=== PATIENT | female | born 1985 | race Caucasian/White ===

== ENCOUNTER 2019-07-20 08:30 | Inpatient (IN) ==
[2019-07-20] MEDS ORDERED: SODIUM CHLORIDE 0.9% 2,000 ML IV STA (08:56)
[2019-07-20 09:49] LABS: Basophils # 0.1 10*3/uL (0.0-0.2); Basophils % 0.4 % (0.0-0.8); Hematocrit 41.4 VOL% (35.7-47.0); Hemoglobin 14.2 GM/DL (12.0-16.0); Immature Granulocytes % 1.6 %; Immature Granulocytes Absolute 0.22 #; Lymphocytes # 0.5 10*3/uL (1.4-4.0); Lymphocytes % 3.7 % (21.3-54.2); Mean Corpuscular HGB Conc 34.3 GM/DL (32-36); Mean Corpuscular Volume 88.7 FL (87-102); Mean Platelet Volume 13.5 FL (9.6-12.0); Monocytes % 2.8 % (1.7-12.7); Neutrophils % 91.5 % (38.7-73.9); Red Blood Count 4.67 MC/CUMM (3.8-5.5); Red Cell Distribution Width 12.7 % (9.3-17.3); White Blood Count 13.7 T/CUMM (4-12)
[2019-07-20 09:53] LABS: Platelet Count 66 T/CUMM (130-400)
[2019-07-20 09:56] LABS: INR 1.3; PT Patient Result 13.9 SECS (9.8-11.9)
[2019-07-20 10:05] LABS: ABG Base Excess -2.8 MMOL/L (-2.5-2.5); ABG HCO3 17.1 MMOL/L (20-26); ABG Oxygen Saturation 97.4 % (95-100); ABG PH 7.547 (7.35-7.45); ABG PO2 94.3 MM HG (80-95); ABG TCO2 17.7 MMOL/L (23-27)
[2019-07-20 10:06] LABS: ABG PCO2 20.1 MM HG (35-48)
[2019-07-20 10:10] LABS: Band Neutrophils 5 % (0-10); Lymphocytes 7 % (20-55); Platelet Estimate Decreased; Segmented Neutrophils 85 % (50-85); Total Cells Counted 100
[2019-07-20 10:13] LABS: Alanine Aminotransferase 84 U/L (13-56); Albumin 2.3 G/DL (3.4-5.0); Alkaline Phosphatase 152 U/L (45-117); Aspartate Amino Transferase 190 U/L (0-37); Blood Urea Nitrogen 60 MG/DL (7-18); Estimated Glom Filtration Rate 26 ML/MIN; Glucose 129 MG/DL (74-106); Osmolality,Calculated 275.1 MOS/KG (273-304); Total Protein 7.1 G/DL (6.4-8.3)
[2019-07-20 10:36] LABS: Amorphous Crystals,Urine Few /HPF (Few); Apearance,Urine CLOUDY (Clear); Bilirubin,Urine Negative (Negative); Blood, Urine Large mg/dL (Negative); Glucose,Urine (UA) Negative (Negative); Ketones,Urine Negative (Negative); Mucus,Urine Occasional /LPF (Occasional); Nitrite,Urine Negative (Negative); Protein,Urine 100 MG/DL; RBC,Urine 13 /HPF (0-4); Red Blood Cell Casts,Urine 15 /LPF (<1); Squamous Epithelial Cell,Urine Occasional /HPF (0-10); Urine Color Amber (Yellow); Urine Specific Gravity 1.017 (1.001-1.035); Urine Urobilinogen < 2.0 EU/DL (0.2-1.0); WBC,Urine 17 /HPF (0-6)
[2019-07-20 10:39] LABS: Barbiturates Screen,Urine Negative (Negative); Benzodiazepines Screen,Urine Negative (Negative); Cannabinoid Screen,Urine Negative (Negative); Opiate Screen,Urine Negative (Negative); Phencyclidine Screen,Urine Negative (Negative)
[2019-07-20] MEDS ORDERED: cefTRIAXone 1,000 MG in SODIUM CHLORIDE 0.9% 100 ML IV STA (10:55)
[2019-07-20 11:53] LABS: Hepatitis B Core IgM Quant 0.14 Index; Hepatitis B Surface Ag Quant 0.17 Index; Hepatitis B Surface Ag Result Negative (Negative); Hepatitis C Virus Ab Quant 2.01 Index
[2019-07-20] MEDS ORDERED: DEXTROSE 10% 250 ML BAG IV PRN (14:20)
[2019-07-20] MEDS ORDERED: GLUCAGON 1 MG VIAL IM PRN (14:20)
[2019-07-20] MEDS ORDERED: ONDANSETRON 4 MG/2 ML VIAL IV PRN (14:20)
[2019-07-20] MEDS ORDERED: SODIUM CHLORIDE 0.9% 1,000 ML IV SCH (15:00)
[2019-07-20] MEDS ORDERED: SODIUM CHLORIDE 0.9% 1,000 ML IV ONE (15:04)
[2019-07-20] MEDS: HYDROCORTISONE 100 MG VIAL IV SCH ×2 (15:15→20:40)
[2019-07-20] MEDS: LEVOTHYROXINE 100 MCG VIAL IV SCH (15:18)
[2019-07-20] MEDS: DIAZEPAM 10 MG/2 ML SYRINGE IV SCH ×2 (15:22→20:35)
[2019-07-20] MEDS: POTASSIUM CHLORIDE 20 MEQ TABLET PO SCH ×5 (15:25→20:35)
[2019-07-20] MEDS: ENOXAPARIN 30 MG/0.3 ML SYRINGE SUBCUT SCH (15:26)
[2019-07-20] MEDS: PANTOPRAZOLE 40 MG TABLET PO SCH (15:26)
[2019-07-20] MEDS: ACETAMINOPHEN 325 MG TABLET PO PRN (15:27)
[2019-07-20 16:24] LABS: Calcium 6.9 MG/DL (8.5-10.1); Osmolality,Calculated 280.5 MOS/KG (273-304)
[2019-07-20] MEDS: INSULIN LISPRO 100 UNIT/ML SUBCUT SCH ×2 (16:52→20:19)
[2019-07-20] MEDS ORDERED: POTASSIUM CHLORIDE RIDER 20 MEQ in PREMIX 1 EACH IV ONE (17:18)
[2019-07-20] MEDS ORDERED: CALCIUM GLUCONATE 2,000 MG in SODIUM CHLORIDE 0.9% 100 ML IV ONE (17:23)
[2019-07-20] MEDS ORDERED: cefTRIAXone 2,000 MG in SYRINGE 1 EACH IV SCH (17:30)
[2019-07-20] MEDS: SODIUM BICARB INJ 100 MEQ in DEXTROSE 5% 1,000 ML IV SCH (18:14)
[2019-07-20 18:39] LABS: Calcium 7.1 MG/DL (8.5-10.1); Osmolality,Calculated 278.5 MOS/KG (273-304)
[2019-07-20 18:43] LABS: ABG Base Excess -4.5 MMOL/L (-2.5-2.5); ABG HCO3 20.7 MMOL/L (20-26); ABG Oxygen Saturation 98.1 % (95-100); ABG PCO2 21.5 MM HG (35-48); ABG PH 7.505 (7.35-7.45); Allen Test Positive; Pt O2 Delivery Device Room Air
[2019-07-20] MEDS: ACYCLOVIR INJ 750 MG in SODIUM CHLORIDE 0.9% 250 ML IV SCH (20:35)
[2019-07-21] MEDS: INSULIN LISPRO 100 UNIT/ML SUBCUT SCH ×5 (00:10→17:06)
[2019-07-21] MEDS: POTASSIUM CHLORIDE 20 MEQ TABLET PO SCH ×7 (00:10→20:51)
[2019-07-21] MEDS: SODIUM BICARB INJ 100 MEQ in DEXTROSE 5% 1,000 ML IV SCH (01:35)
[2019-07-21] MEDS: DIAZEPAM 10 MG/2 ML SYRINGE IV SCH (03:32)
[2019-07-21] MEDS: ACYCLOVIR INJ 750 MG in SODIUM CHLORIDE 0.9% 250 ML IV SCH ×2 (03:38→17:05)
[2019-07-21 03:50] LABS: Eosinophils % 0.1 % (0.00-10.9); Hemoglobin 10.9 GM/DL (12.0-16.0); Lymphocytes % 7.9 % (21.3-54.2); Mean Corpuscular HGB Conc 35.2 GM/DL (32-36); Mean Corpuscular Volume 87.3 FL (87-102); Mean Platelet Volume 13.7 FL (9.6-12.0); Monocytes % 2.5 % (1.7-12.7); Neutrophils % 87.6 % (38.7-73.9); Red Blood Count 3.55 MC/CUMM (3.8-5.5); Red Cell Distribution Width 12.4 % (9.3-17.3); White Blood Count 12.3 T/CUMM (4-12)
[2019-07-21 03:51] LABS: Basophils % 0.3 % (0.0-0.8); Immature Granulocytes % 1.6 %; Platelet Count 56 T/CUMM (130-400)
[2019-07-21 03:59] LABS: Albumin 1.7 G/DL (3.4-5.0); Bilirubin,Total 0.7 MG/DL (0.2-1.0); Calcium 7.3 MG/DL (8.5-10.1); Osmolality,Calculated 281.1 MOS/KG (273-304); Total Protein 5.3 G/DL (6.4-8.3)
[2019-07-21 04:18] LABS: Troponin I 0.753 NG/ML (0.00-0.045)
[2019-07-21] MEDS: HYDROCORTISONE 100 MG VIAL IV SCH ×2 (04:30→16:48)
[2019-07-21] MEDS ORDERED: POTASSIUM CHLORIDE RIDER 20 MEQ in PREMIX 1 EACH IV ONE (05:00)
[2019-07-21] MEDS: LACTATED RINGERS 1,000 ML IV SCH ×3 (05:08→18:37)
[2019-07-21] MEDS: LEVOTHYROXINE 100 MCG VIAL IV SCH (06:10)
[2019-07-21 06:38] LABS: Band Neutrophils 5 % (0-10); Lymphocytes 4 % (20-55); Platelet Estimate Decreased; Polychromasia Slight; Segmented Neutrophils 89 % (50-85); Total Cells Counted 100
[2019-07-21] MEDS ORDERED: DIAZEPAM 10 MG/2 ML SYRINGE IV PRN (07:49)
[2019-07-21] MEDS ORDERED: DIAZEPAM 10 MG/2 ML SYRINGE IV SCH (08:00)
[2019-07-21] MEDS ORDERED: cefTRIAXone 1,000 MG in SYRINGE 1 EACH IV SCH (09:00)
[2019-07-21] MEDS: DIAZEPAM 5 MG TABLET PO SCH ×3 (09:04→20:51)
[2019-07-21 10:37] LABS: ABG Base Excess 2.9 MMOL/L (-2.5-2.5); ABG HCO3 24.3 MMOL/L (20-26); ABG Oxygen Saturation 97.8 % (95-100); ABG PCO2 27.4 MM HG (35-48); ABG PH 7.565 (7.35-7.45); ABG PO2 108.1 MM HG (80-95); ABG TCO2 25.1 MMOL/L (23-27)
[2019-07-21 10:38] LABS: Allen Test Positive; Pt O2 Delivery Device Room Air
[2019-07-21 10:50] LABS: Apearance,Urine CLOUDY (Clear); Bacteria,Urine Occasional /HPF (Few); Bilirubin,Urine Negative (Negative); Blood, Urine Large mg/dL (Negative); Glucose,Urine (UA) Negative (Negative); Ketones,Urine Negative (Negative); Mucus,Urine Occasional /LPF (Occasional); Nitrite,Urine Negative (Negative); Protein,Urine Negative; RBC,Urine 21 /HPF (0-4); Squamous Epithelial Cell,Urine Occasional /HPF (0-10); Urine Color Yellow (Yellow); Urine Specific Gravity 1.014 (1.001-1.035); Urine Urobilinogen < 2.0 EU/DL (0.2-1.0); WBC,Urine 69 /HPF (0-6)
[2019-07-21] MEDS: PANTOPRAZOLE 40 MG TABLET PO SCH (11:36)
[2019-07-21] MEDS: ENOXAPARIN 30 MG/0.3 ML SYRINGE SUBCUT SCH (14:22)
[2019-07-21] MEDS: RIFAMPIN 300 MG CAPSULE PO SCH ×2 (14:22→22:08)
[2019-07-21] MEDS: ceFAZolin 2,000 MG in PREMIX 1 EACH IV SCH ×2 (16:52→22:08)
[2019-07-21] MEDS: ACETAMINOPHEN 325 MG TABLET PO PRN (17:05)
[2019-07-22] MEDS: INSULIN LISPRO 100 UNIT/ML SUBCUT SCH ×7 (01:02→21:05)
[2019-07-22] MEDS: LACTATED RINGERS 1,000 ML IV SCH ×3 (01:03→15:00)
[2019-07-22] MEDS: POTASSIUM CHLORIDE 20 MEQ TABLET PO SCH ×2 (01:03→04:02)
[2019-07-22] MEDS: DIAZEPAM 5 MG TABLET PO SCH ×4 (01:03→21:06)
[2019-07-22] MEDS: LEVOTHYROXINE 100 MCG VIAL IV SCH (06:02)
[2019-07-22 06:08] LABS: Basophils # 0.1 10*3/uL (0.0-0.2); Basophils % 0.4 % (0.0-0.8); Eosinophils % 0.2 % (0.00-10.9); Hematocrit 30.1 VOL% (35.7-47.0); Hemoglobin 10.4 GM/DL (12.0-16.0); Immature Granulocytes % 0.9 %; Immature Granulocytes Absolute 0.11 #; Lymphocytes # 1.2 10*3/uL (1.4-4.0); Lymphocytes % 10.7 % (21.3-54.2); Mean Corpuscular HGB Conc 34.6 GM/DL (32-36); Mean Corpuscular Volume 88.3 FL (87-102); Mean Platelet Volume 14.1 FL (9.6-12.0); Monocytes % 3.7 % (1.7-12.7); Neutrophils % 84.1 % (38.7-73.9); Red Blood Count 3.41 MC/CUMM (3.8-5.5); Red Cell Distribution Width 12.7 % (9.3-17.3); White Blood Count 11.6 T/CUMM (4-12)
[2019-07-22 06:11] LABS: Platelet Count 45 T/CUMM (130-400)
[2019-07-22] MEDS: ceFAZolin 2,000 MG in PREMIX 1 EACH IV SCH ×3 (06:12→22:53)
[2019-07-22 06:34] LABS: Albumin 1.4 G/DL (3.4-5.0); Bilirubin,Total 0.6 MG/DL (0.2-1.0); Calcium 7.4 MG/DL (8.5-10.1); Osmolality,Calculated 282.8 MOS/KG (273-304); Total Protein 5.4 G/DL (6.4-8.3)
[2019-07-22 06:37] LABS: Troponin I 1.37 NG/ML (0.00-0.045)
[2019-07-22 06:46] LABS: Band Neutrophils 9 % (0-10); Eosinophils 1 % (0-10); Total Cells Counted 100
[2019-07-22 06:47] LABS: Hypochromasia 3+; Lymphocytes 12 % (20-55); Metamyelocytes 2 %; Platelet Estimate Normal; Segmented Neutrophils 73 % (50-85)
[2019-07-22 08:32] LABS: HIV Antigen/Antibody Result Nonreactive (Nonreactive)
[2019-07-22] MEDS ORDERED: MAGNESIUM SULF RIDER 2 GM in PREMIX 1 EACH IV PRN (09:10)
[2019-07-22] MEDS ORDERED: MAGNESIUM SULF RIDER 4 GM in PREMIX 1 EACH IV PRN (09:10)
[2019-07-22] MEDS: PANTOPRAZOLE 40 MG TABLET PO SCH (09:35)
[2019-07-22] MEDS: RIFAMPIN 300 MG CAPSULE PO SCH (09:35)
[2019-07-22] MEDS: POTASSIUM CHLORIDE RIDER 10 MEQ in PREMIX 1 EACH IV PRN ×5 (11:50→16:53)
[2019-07-22] MEDS: METOPROLOL TARTRATE 25 MG TABLET PO SCH (21:06)
[2019-07-22] MEDS: CLINDAMYCIN INJ 600 MG in PREMIX 1 EACH IV SCH (22:29)
[2019-07-23] MEDS: INSULIN LISPRO 100 UNIT/ML SUBCUT SCH ×7 (02:13→23:52)
[2019-07-23] MEDS: DIAZEPAM 5 MG TABLET PO SCH (02:13)
[2019-07-23] MEDS: ACETAMINOPHEN 325 MG TABLET PO PRN ×2 (03:50→22:22)
[2019-07-23 05:45] LABS: Risk Ratio 11.5; VLDL CHOLESTEROL 29.2 MG/DL
[2019-07-23 05:49] LABS: Alanine Aminotransferase 74 U/L (13-56); Albumin 1.1 G/DL (3.4-5.0); Alkaline Phosphatase 122 U/L (45-117); Aspartate Amino Transferase 147 U/L (0-37); Blood Urea Nitrogen 34 MG/DL (7-18); Calcium 7.1 MG/DL (8.5-10.1); Estimated Glom Filtration Rate 64 ML/MIN; Glucose 96 MG/DL (74-106); Osmolality,Calculated 273.4 MOS/KG (273-304); Total Protein 5.5 G/DL (6.4-8.3)
[2019-07-23] MEDS: ceFAZolin 2,000 MG in PREMIX 1 EACH IV SCH ×3 (06:30→22:17)
[2019-07-23] MEDS: LEVOTHYROXINE 100 MCG VIAL IV SCH (06:32)
[2019-07-23] MEDS: CLINDAMYCIN INJ 600 MG in PREMIX 1 EACH IV SCH ×3 (06:37→20:58)
[2019-07-23] MEDS ORDERED: ACETAMINOPHEN 500 MG TABLET PO ONE (06:50)
[2019-07-23 07:26] LABS: Basophils % 0.2 % (0.0-0.8); Eosinophils # 0.1 10*3/uL (0.0-0.87); Eosinophils % 1.3 % (0.00-10.9); Hematocrit 26.6 VOL% (35.7-47.0); Hemoglobin 9.1 GM/DL (12.0-16.0); Immature Granulocytes % 4.4 %; Immature Granulocytes Absolute 0.49 #; Lymphocytes # 1.7 10*3/uL (1.4-4.0); Lymphocytes % 15.5 % (21.3-54.2); Mean Corpuscular HGB Conc 34.2 GM/DL (32-36); Mean Corpuscular Volume 89.3 FL (87-102); Mean Platelet Volume 11.5 FL (9.6-12.0); Monocytes % 3.9 % (1.7-12.7); Neutrophils % 74.7 % (38.7-73.9); Platelet Count 101 T/CUMM (130-400); Red Blood Count 2.98 MC/CUMM (3.8-5.5); White Blood Count 11.1 T/CUMM (4-12)
[2019-07-23] MEDS: LACTATED RINGERS 1,000 ML IV SCH (07:35)
[2019-07-23 07:55] LABS: Band Neutrophils 1 % (0-10); Eosinophils 1 % (0-10); Hypochromasia 1+; Lymphocytes 13 % (20-55); Microcytosis 1+; Platelet Estimate Decreased; Segmented Neutrophils 80 % (50-85); Total Cells Counted 100
[2019-07-23] MEDS: FUROSEMIDE 20 MG/2 ML VIAL IV SCH ×2 (08:17→17:02)
[2019-07-23] MEDS: ALBUMIN 25% 12.5 GM in PREMIX 1 EACH IV SCH ×2 (08:29→17:13)
[2019-07-23] MEDS: ASPIRIN EC 81 MG TABLET PO SCH (10:32)
[2019-07-23] MEDS: METOPROLOL TARTRATE 25 MG TABLET PO SCH ×2 (10:43→20:59)
[2019-07-24] MEDS: ALBUMIN 25% 12.5 GM in PREMIX 1 EACH IV SCH (00:07)
[2019-07-24] MEDS: CLINDAMYCIN INJ 600 MG in PREMIX 1 EACH IV SCH ×3 (05:00→21:33)
[2019-07-24] MEDS: INSULIN LISPRO 100 UNIT/ML SUBCUT SCH ×6 (05:06→23:48)
[2019-07-24] MEDS: ceFAZolin 2,000 MG in PREMIX 1 EACH IV SCH ×3 (05:30→23:47)
[2019-07-24] MEDS: LACTATED RINGERS 1,000 ML IV SCH ×3 (05:43→11:40)
[2019-07-24] MEDS: LEVOTHYROXINE 100 MCG VIAL IV SCH (06:00)
[2019-07-24 06:03] LABS: Basophils % 0.2 % (0.0-0.8); Eosinophils # 0.2 10*3/uL (0.0-0.87); Eosinophils % 1.5 % (0.00-10.9); Hematocrit 26.8 VOL% (35.7-47.0); Hemoglobin 9.2 GM/DL (12.0-16.0); Immature Granulocytes % 5.4 %; Immature Granulocytes Absolute 0.81 #; Lymphocytes # 1.9 10*3/uL (1.4-4.0); Lymphocytes % 12.7 % (21.3-54.2); Mean Corpuscular HGB Conc 34.3 GM/DL (32-36); Mean Corpuscular Volume 88.4 FL (87-102); Monocytes % 4.7 % (1.7-12.7); Neutrophils % 75.5 % (38.7-73.9); Red Blood Count 3.03 MC/CUMM (3.8-5.5); Red Cell Distribution Width 13.4 % (9.3-17.3)
[2019-07-24 06:06] LABS: White Blood Count 15.1 T/CUMM (4-12)
[2019-07-24 06:07] LABS: Platelet Count 152 T/CUMM (130-400)
[2019-07-24 06:22] LABS: Band Neutrophils 4 % (0-10); Eosinophils 2 % (0-10); Hypochromasia 1+; Lymphocytes 10 % (20-55); Microcytosis Slight; Platelet Estimate Adequate; Segmented Neutrophils 80 % (50-85); Total Cells Counted 100
[2019-07-24 06:24] LABS: Albumin 1.7 G/DL (3.4-5.0); Bilirubin,Total 0.7 MG/DL (0.2-1.0); Calcium 7.4 MG/DL (8.5-10.1); Osmolality,Calculated 272.2 MOS/KG (273-304)
[2019-07-24 08:24] LABS: Random Urine Protein (Bench) 58 MG/DL (<11.9)
[2019-07-24] MEDS: ASPIRIN EC 81 MG TABLET PO SCH (08:38)
[2019-07-24] MEDS: ACETAMINOPHEN 325 MG TABLET PO PRN ×2 (08:38→21:27)
[2019-07-24] MEDS: METOPROLOL TARTRATE 25 MG TABLET PO SCH ×2 (08:38→21:36)
[2019-07-25] MEDS: INSULIN LISPRO 100 UNIT/ML SUBCUT SCH ×5 (04:58→22:42)
[2019-07-25] MEDS: CLINDAMYCIN INJ 600 MG in PREMIX 1 EACH IV SCH ×3 (05:46→22:37)
[2019-07-25 07:48] LABS: Basophils % 0.2 % (0.0-0.8); Eosinophils # 0.2 10*3/uL (0.0-0.87); Eosinophils % 1.4 % (0.00-10.9); Hematocrit 25.7 VOL% (35.7-47.0); Hemoglobin 8.6 GM/DL (12.0-16.0); Immature Granulocytes % 5.8 %; Immature Granulocytes Absolute 1.02 #; Lymphocytes # 1.9 10*3/uL (1.4-4.0); Lymphocytes % 10.7 % (21.3-54.2); Mean Corpuscular HGB Conc 33.5 GM/DL (32-36); Mean Corpuscular Volume 92.4 FL (87-102); Mean Platelet Volume 11.7 FL (9.6-12.0); Monocytes % 4.7 % (1.7-12.7); Neutrophils % 77.2 % (38.7-73.9); Platelet Count 166 T/CUMM (130-400); Red Blood Count 2.78 MC/CUMM (3.8-5.5); Red Cell Distribution Width 13.6 % (9.3-17.3); White Blood Count 17.7 T/CUMM (4-12)
[2019-07-25 08:07] LABS: Albumin 1.4 G/DL (3.4-5.0); Band Neutrophils 3 % (0-10); Bilirubin,Total 0.4 MG/DL (0.2-1.0); Calcium 7.5 MG/DL (8.5-10.1); Eosinophils 2 % (0-10); Hypochromasia 1+; Lymphocytes 7 % (20-55); Osmolality,Calculated 263.7 MOS/KG (273-304); Segmented Neutrophils 85 % (50-85); Total Cells Counted 100
[2019-07-25 08:08] LABS: Microcytosis Slight
[2019-07-25 08:21] LABS: Calcium 7.2 MG/DL (8.5-10.1); Osmolality,Calculated 263.7 MOS/KG (273-304)
[2019-07-25] MEDS: LEVOTHYROXINE 100 MCG VIAL IV SCH (08:54)
[2019-07-25] MEDS: ASPIRIN EC 81 MG TABLET PO SCH (08:57)
[2019-07-25] MEDS: ACETAMINOPHEN 325 MG TABLET PO PRN (08:57)
[2019-07-25] MEDS: METOPROLOL TARTRATE 25 MG TABLET PO SCH ×2 (08:59→22:36)
[2019-07-25] MEDS: LACTATED RINGERS 1,000 ML IV SCH (09:31)
[2019-07-25] MEDS: ceFAZolin 2,000 MG in PREMIX 1 EACH IV SCH ×2 (10:32→16:02)
[2019-07-26] MEDS: ceFAZolin 2,000 MG in PREMIX 1 EACH IV SCH ×3 (00:55→18:09)
[2019-07-26] MEDS: INSULIN LISPRO 100 UNIT/ML SUBCUT SCH ×6 (00:56→22:01)
[2019-07-26 05:49] LABS: Basophils # 0.1 10*3/uL (0.0-0.2); Basophils % 0.3 % (0.0-0.8); Eosinophils # 0.1 10*3/uL (0.0-0.87); Eosinophils % 0.5 % (0.00-10.9); Hematocrit 26.7 VOL% (35.7-47.0); Hemoglobin 8.7 GM/DL (12.0-16.0); Immature Granulocytes % 4.2 %; Immature Granulocytes Absolute 0.84 #; Lymphocytes # 1.8 10*3/uL (1.4-4.0); Mean Corpuscular HGB Conc 32.6 GM/DL (32-36); Mean Platelet Volume 11.3 FL (9.6-12.0); Monocytes % 4.4 % (1.7-12.7); Neutrophils % 81.6 % (38.7-73.9); Platelet Count 230 T/CUMM (130-400); Red Blood Count 2.84 MC/CUMM (3.8-5.5); Red Cell Distribution Width 13.8 % (9.3-17.3); White Blood Count 20.1 T/CUMM (4-12)
[2019-07-26 06:11] LABS: Band Neutrophils 2 % (0-10); Lymphocytes 11 % (20-55); Myelocytes 1 %; Platelet Estimate Adequate; Segmented Neutrophils 80 % (50-85); Total Cells Counted 100
[2019-07-26 06:12] LABS: Hypochromasia 1+; Microcytosis Slight
[2019-07-26 06:14] LABS: Alanine Aminotransferase 35 U/L (13-56); Albumin 1.4 G/DL (3.4-5.0); Alkaline Phosphatase 121 U/L (45-117); Aspartate Amino Transferase 78 U/L (0-37); Bilirubin,Total < 0.39 MG/DL (0.2-1.0); Blood Urea Nitrogen 17 MG/DL (7-18); Calcium 7.6 MG/DL (8.5-10.1); Estimated Glom Filtration Rate 80 ML/MIN; Glucose 88 MG/DL (74-106); Osmolality,Calculated 260.8 MOS/KG (273-304); Total Protein 6.4 G/DL (6.4-8.3)
[2019-07-26] MEDS: CLINDAMYCIN INJ 600 MG in PREMIX 1 EACH IV SCH ×3 (07:58→23:15)
[2019-07-26] MEDS: LACTATED RINGERS 1,000 ML IV SCH ×2 (07:58→23:00)
[2019-07-26] MEDS: LEVOTHYROXINE 100 MCG VIAL IV SCH (08:31)
[2019-07-26] MEDS: ASPIRIN EC 81 MG TABLET PO SCH (08:32)
[2019-07-26] MEDS: METOPROLOL TARTRATE 25 MG TABLET PO SCH ×2 (08:32→21:20)
[2019-07-26 13:27] LABS: Apearance,Urine CLEAR (Clear); Bilirubin,Urine Negative (Negative); Blood, Urine Small mg/dL (Negative); Glucose,Urine (UA) Negative (Negative); Ketones,Urine Negative (Negative); Nitrite,Urine Negative (Negative); Protein,Urine Negative; RBC,Urine 5 /HPF (0-4); Urine Color Straw (Yellow); Urine Specific Gravity 1.008 (1.001-1.035); Urine Urobilinogen < 2.0 EU/DL (0.2-1.0); WBC,Urine 5 /HPF (0-6)
[2019-07-26] MEDS: ALBUMIN 5% 12.5 GM in PREMIX 1 EACH IV SCH ×2 (15:05→21:25)
[2019-07-27] MEDS: ceFAZolin 2,000 MG in PREMIX 1 EACH IV SCH ×2 (00:50→09:54)
[2019-07-27] MEDS: INSULIN LISPRO 100 UNIT/ML SUBCUT SCH ×6 (02:37→21:37)
[2019-07-27] MEDS: ALBUMIN 5% 12.5 GM in PREMIX 1 EACH IV SCH (05:43)
[2019-07-27] MEDS: LEVOTHYROXINE 112 MCG TABLET PO SCH (05:43)
[2019-07-27] MEDS: CLINDAMYCIN INJ 600 MG in PREMIX 1 EACH IV SCH (06:37)
[2019-07-27 07:44] LABS: Basophils # 0.1 10*3/uL (0.0-0.2); Basophils % 0.4 % (0.0-0.8); Eosinophils # 0.1 10*3/uL (0.0-0.87); Eosinophils % 0.7 % (0.00-10.9); Hematocrit 24.3 VOL% (35.7-47.0); Hemoglobin 8.1 GM/DL (12.0-16.0); Immature Granulocytes % 4.1 %; Immature Granulocytes Absolute 0.81 #; Lymphocytes # 1.7 10*3/uL (1.4-4.0); Lymphocytes % 8.8 % (21.3-54.2); Mean Corpuscular HGB Conc 33.3 GM/DL (32-36); Mean Platelet Volume 10.1 FL (9.6-12.0); Monocytes % 4.8 % (1.7-12.7); Neutrophils % 81.2 % (38.7-73.9); Platelet Count 428 T/CUMM (130-400); Red Blood Count 2.64 MC/CUMM (3.8-5.5); Red Cell Distribution Width 13.8 % (9.3-17.3); White Blood Count 19.8 T/CUMM (4-12)
[2019-07-27 07:54] LABS: Alanine Aminotransferase 49 U/L (13-56); Albumin 1.9 G/DL (3.4-5.0); Alkaline Phosphatase 131 U/L (45-117); Aspartate Amino Transferase 95 U/L (0-37); Bilirubin,Total < 0.39 MG/DL (0.2-1.0); Blood Urea Nitrogen 15 MG/DL (7-18); Calcium 8.1 MG/DL (8.5-10.1); Estimated Glom Filtration Rate 87 ML/MIN; Glucose 100 MG/DL (74-106); Osmolality,Calculated 262.7 MOS/KG (273-304); Total Protein 6.9 G/DL (6.4-8.3)
[2019-07-27 08:47] LABS: Anisocytosis 1+; Band Neutrophils 4 % (0-10); Lymphocytes 14 % (20-55); Macrocytosis 1+; Metamyelocytes 2 %; Platelet Estimate Normal; Segmented Neutrophils 72 % (50-85); Total Cells Counted 100
[2019-07-27] MEDS: LACTATED RINGERS 1,000 ML IV SCH ×2 (09:54→21:36)
[2019-07-27] MEDS: METOPROLOL TARTRATE 25 MG TABLET PO SCH ×2 (09:55→21:25)
[2019-07-27] MEDS: ASPIRIN EC 81 MG TABLET PO SCH (09:55)
[2019-07-27] MEDS ORDERED: KETOROLAC 15 MG/1 ML VIAL IV ONE (12:00)
[2019-07-27] MEDS: PIPERACILLIN/TAZOBACTAM 3,375 MG in SODIUM CHLORIDE 0.9% 100 ML IV SCH (16:53)
[2019-07-27] MEDS: ACETAMINOPHEN 325 MG TABLET PO PRN (20:06)
[2019-07-28] MEDS: INSULIN LISPRO 100 UNIT/ML SUBCUT SCH ×6 (00:43→21:06)
[2019-07-28] MEDS: PIPERACILLIN/TAZOBACTAM 3,375 MG in SODIUM CHLORIDE 0.9% 100 ML IV SCH ×3 (01:10→21:05)
[2019-07-28] MEDS: LEVOTHYROXINE 112 MCG TABLET PO SCH (05:40)
[2019-07-28] MEDS: ACETAMINOPHEN 325 MG TABLET PO PRN ×4 (05:41→21:03)
[2019-07-28 05:54] LABS: Basophils # 0.1 10*3/uL (0.0-0.2); Basophils % 0.4 % (0.0-0.8); Eosinophils # 0.2 10*3/uL (0.0-0.87); Eosinophils % 0.9 % (0.00-10.9); Hematocrit 25.1 VOL% (35.7-47.0); Hemoglobin 8.2 GM/DL (12.0-16.0); Immature Granulocytes % 4.2 %; Immature Granulocytes Absolute 0.77 #; Lymphocytes # 1.7 10*3/uL (1.4-4.0); Lymphocytes % 9.3 % (21.3-54.2); Mean Corpuscular HGB Conc 32.7 GM/DL (32-36); Mean Corpuscular Volume 92.6 FL (87-102); Mean Platelet Volume 9.7 FL (9.6-12.0); Monocytes % 5.2 % (1.7-12.7); Platelet Count 525 T/CUMM (130-400); Red Blood Count 2.71 MC/CUMM (3.8-5.5); Red Cell Distribution Width 13.8 % (9.3-17.3); White Blood Count 18.5 T/CUMM (4-12)
[2019-07-28 06:22] LABS: Alanine Aminotransferase 64 U/L (13-56); Albumin 1.8 G/DL (3.4-5.0); Alkaline Phosphatase 136 U/L (45-117); Aspartate Amino Transferase 102 U/L (0-37); Bilirubin,Total < 0.39 MG/DL (0.2-1.0); Blood Urea Nitrogen 18 MG/DL (7-18); Calcium 8.3 MG/DL (8.5-10.1); Estimated Glom Filtration Rate 84 ML/MIN; Glucose 102 MG/DL (74-106); Osmolality,Calculated 267.4 MOS/KG (273-304); Total Protein 6.8 G/DL (6.4-8.3)
[2019-07-28 06:59] LABS: Band Neutrophils 1 % (0-10); Lymphocytes 4 % (20-55); Segmented Neutrophils 90 % (50-85); Total Cells Counted 100
[2019-07-28 07:00] LABS: Anisocytosis 2+; Hypochromasia 2+; Microcytosis 1+
[2019-07-28 07:01] LABS: Platelet Estimate Increased; Polychromasia Slight; Spherocytes Few
[2019-07-28] MEDS: METOPROLOL TARTRATE 25 MG TABLET PO SCH ×2 (08:57→21:03)
[2019-07-28] MEDS: ASPIRIN EC 81 MG TABLET PO SCH (08:57)
[2019-07-28] MEDS: LACTATED RINGERS 1,000 ML IV SCH (21:05)
[2019-07-29] MEDS: ACETAMINOPHEN 325 MG TABLET PO PRN ×2 (01:34→06:21)
[2019-07-29] MEDS: INSULIN LISPRO 100 UNIT/ML SUBCUT SCH ×6 (02:27→21:25)
[2019-07-29] MEDS: PIPERACILLIN/TAZOBACTAM 3,375 MG in SODIUM CHLORIDE 0.9% 100 ML IV SCH ×3 (04:55→21:25)
[2019-07-29] MEDS: LEVOTHYROXINE 112 MCG TABLET PO SCH (06:20)
[2019-07-29 07:06] LABS: Basophils # 0.1 10*3/uL (0.0-0.2); Basophils % 0.4 % (0.0-0.8); Eosinophils # 0.2 10*3/uL (0.0-0.87); Hematocrit 26.9 VOL% (35.7-47.0); Hemoglobin 8.4 GM/DL (12.0-16.0); Immature Granulocytes Absolute 0.67 #; Lymphocytes # 1.4 10*3/uL (1.4-4.0); Lymphocytes % 8.3 % (21.3-54.2); Mean Corpuscular HGB Conc 31.2 GM/DL (32-36); Mean Corpuscular Volume 96.1 FL (87-102); Mean Platelet Volume 9.2 FL (9.6-12.0); Monocytes % 4.9 % (1.7-12.7); Neutrophils % 81.4 % (38.7-73.9); Platelet Count 597 T/CUMM (130-400); Red Cell Distribution Width 13.8 % (9.3-17.3); White Blood Count 16.8 T/CUMM (4-12)
[2019-07-29 07:26] LABS: Albumin 1.8 G/DL (3.4-5.0); Bilirubin,Total 0.4 MG/DL (0.2-1.0); Calcium 8.5 MG/DL (8.5-10.1); Osmolality,Calculated 268.2 MOS/KG (273-304); Total Protein 7.3 G/DL (6.4-8.3)
[2019-07-29 08:30] LABS: Band Neutrophils 11 % (0-10); Eosinophils 2 % (0-10); Lymphocytes 7 % (20-55); Metamyelocytes 2 %; Platelet Estimate Increased; Segmented Neutrophils 72 % (50-85); Total Cells Counted 100
[2019-07-29 08:31] LABS: Anisocytosis 1+; Macrocytosis Slight
[2019-07-29] MEDS: ASPIRIN EC 81 MG TABLET PO SCH (09:29)
[2019-07-29] MEDS: METOPROLOL TARTRATE 25 MG TABLET PO SCH ×2 (09:29→21:25)
[2019-07-29] MEDS ORDERED: ALUM/MAG/SIMETH/LIDO VISC 1:1 30 ML BOTTLE PO PRN (10:27)
[2019-07-29] MEDS ORDERED: POTASSIUM CHLORIDE 20 MEQ TABLET PO PRN (10:27)
[2019-07-29] MEDS: NITROGLYCERIN SL 0.4 MG TABLET SL PRN ×2 (10:45→14:56)
[2019-07-29] MEDS: ENOXAPARIN 80 MG/0.8 ML SYRINGE SUBCUT SCH (11:54)
[2019-07-29] MEDS: LACTATED RINGERS 1,000 ML IV SCH (11:54)
[2019-07-29] MEDS ORDERED: KETOROLAC 15 MG/1 ML VIAL IV PRN (15:13)
[2019-07-29] MEDS ORDERED: KETOROLAC 30 MG/1 ML VIAL IV PRN (15:13)
[2019-07-29] MEDS: PANTOPRAZOLE 40 MG TABLET PO SCH (15:37)
[2019-07-30] MEDS: PIPERACILLIN/TAZOBACTAM 3,375 MG in SODIUM CHLORIDE 0.9% 100 ML IV SCH ×3 (04:10→21:05)
[2019-07-30] MEDS: ACETAMINOPHEN 325 MG TABLET PO PRN ×2 (04:10→15:35)
[2019-07-30] MEDS: LEVOTHYROXINE 112 MCG TABLET PO SCH (06:41)
[2019-07-30 08:20] LABS: Basophils # 0.1 10*3/uL (0.0-0.2); Basophils % 0.5 % (0.0-0.8); Eosinophils # 0.2 10*3/uL (0.0-0.87); Hematocrit 27.2 VOL% (35.7-47.0); Hemoglobin 8.5 GM/DL (12.0-16.0); Immature Granulocytes % 2.4 %; Immature Granulocytes Absolute 0.43 #; Lymphocytes # 1.7 10*3/uL (1.4-4.0); Lymphocytes % 9.7 % (21.3-54.2); Mean Corpuscular HGB Conc 31.3 GM/DL (32-36); Mean Corpuscular Volume 96.8 FL (87-102); Mean Platelet Volume 9.3 FL (9.6-12.0); Monocytes % 4.1 % (1.7-12.7); Neutrophils % 82.3 % (38.7-73.9); Platelet Count 680 T/CUMM (130-400); Red Blood Count 2.81 MC/CUMM (3.8-5.5); Red Cell Distribution Width 13.8 % (9.3-17.3); White Blood Count 17.6 T/CUMM (4-12)
[2019-07-30] MEDS: INSULIN LISPRO 100 UNIT/ML SUBCUT SCH ×4 (08:36→21:11)
[2019-07-30 08:40] LABS: Albumin 1.9 G/DL (3.4-5.0); Bilirubin,Total 0.4 MG/DL (0.2-1.0); Calcium 8.5 MG/DL (8.5-10.1); Osmolality,Calculated 266.4 MOS/KG (273-304); Total Protein 7.7 G/DL (6.4-8.3)
[2019-07-30] MEDS: PANTOPRAZOLE 40 MG TABLET PO SCH (09:18)
[2019-07-30] MEDS: METOPROLOL TARTRATE 25 MG TABLET PO SCH ×2 (09:18→21:11)
[2019-07-30] MEDS: ASPIRIN EC 81 MG TABLET PO SCH (09:18)
[2019-07-30] MEDS: ENOXAPARIN 80 MG/0.8 ML SYRINGE SUBCUT SCH (11:33)
[2019-07-30] MEDS: LACTATED RINGERS 1,000 ML IV SCH (18:19)
[2019-07-31] MEDS: ACETAMINOPHEN 325 MG TABLET PO PRN ×2 (00:23→16:46)
[2019-07-31] MEDS: LACTATED RINGERS 1,000 ML IV SCH (03:00)
[2019-07-31] MEDS: PIPERACILLIN/TAZOBACTAM 3,375 MG in SODIUM CHLORIDE 0.9% 100 ML IV SCH ×3 (04:29→20:49)
[2019-07-31] MEDS: LEVOTHYROXINE 112 MCG TABLET PO SCH (06:10)
[2019-07-31 08:04] LABS: Basophils # 0.1 10*3/uL (0.0-0.2); Basophils % 0.7 % (0.0-0.8); Eosinophils # 0.2 10*3/uL (0.0-0.87); Eosinophils % 1.3 % (0.00-10.9); Hematocrit 26.7 VOL% (35.7-47.0); Hemoglobin 8.1 GM/DL (12.0-16.0); Immature Granulocytes Absolute 0.33 #; Lymphocytes # 1.8 10*3/uL (1.4-4.0); Lymphocytes % 11.1 % (21.3-54.2); Mean Corpuscular HGB Conc 30.3 GM/DL (32-36); Mean Corpuscular Volume 99.3 FL (87-102); Monocytes % 5.3 % (1.7-12.7); Neutrophils % 79.6 % (38.7-73.9); Platelet Count 729 T/CUMM (130-400); Red Blood Count 2.69 MC/CUMM (3.8-5.5); White Blood Count 16.2 T/CUMM (4-12)
[2019-07-31 08:23] LABS: Alanine Aminotransferase 48 U/L (13-56); Albumin 1.9 G/DL (3.4-5.0); Alkaline Phosphatase 131 U/L (45-117); Aspartate Amino Transferase 35 U/L (0-37); Bilirubin,Total < 0.39 MG/DL (0.2-1.0); Blood Urea Nitrogen 12 MG/DL (7-18); Calcium 8.7 MG/DL (8.5-10.1); Estimated Glom Filtration Rate 100 ML/MIN; Glucose 124 MG/DL (74-106); Osmolality,Calculated 273.8 MOS/KG (273-304); Total Protein 7.6 G/DL (6.4-8.3)
[2019-07-31] MEDS: INSULIN LISPRO 100 UNIT/ML SUBCUT SCH ×4 (08:56→20:49)
[2019-07-31] MEDS: PANTOPRAZOLE 40 MG TABLET PO SCH (09:00)
[2019-07-31] MEDS: METOPROLOL TARTRATE 25 MG TABLET PO SCH ×2 (09:00→20:49)
[2019-07-31] MEDS: ASPIRIN EC 81 MG TABLET PO SCH (09:01)
[2019-07-31] MEDS: LEVOFLOXACIN INJ 750 MG in PREMIX 1 EACH IV SCH (16:48)
[2019-08-01] MEDS: ACETAMINOPHEN 325 MG TABLET PO PRN ×3 (00:14→21:36)
[2019-08-01] MEDS: PIPERACILLIN/TAZOBACTAM 3,375 MG in SODIUM CHLORIDE 0.9% 100 ML IV SCH (03:18)
[2019-08-01] MEDS: LEVOTHYROXINE 112 MCG TABLET PO SCH (06:39)
[2019-08-01 07:06] LABS: Calcium 8.8 MG/DL (8.5-10.1); Osmolality,Calculated 265.4 MOS/KG (273-304)
[2019-08-01] MEDS: INSULIN LISPRO 100 UNIT/ML SUBCUT SCH ×4 (07:50→21:36)
[2019-08-01] MEDS ORDERED: propofoL 200 MG/20 ML VIAL IV ONE ×3 (09:23→14:36)
[2019-08-01] MEDS ORDERED: LIDOCAINE 2% 5 ML VIAL ONE ×2 (09:23→14:36)
[2019-08-01] MEDS: METOPROLOL TARTRATE 25 MG TABLET PO SCH ×2 (12:03→21:35)
[2019-08-01] MEDS: PANTOPRAZOLE 40 MG TABLET PO SCH (12:48)
[2019-08-01] MEDS: ASPIRIN EC 81 MG TABLET PO SCH (12:48)
[2019-08-01] MEDS: ceFAZolin 2,000 MG in PREMIX 1 EACH IV SCH (14:26)
[2019-08-01 14:40] LABS: Basophils # 0.1 10*3/uL (0.0-0.2); Basophils % 0.6 % (0.0-0.8); Eosinophils # 0.2 10*3/uL (0.0-0.87); Eosinophils % 1.5 % (0.00-10.9); Hematocrit 25.2 VOL% (35.7-47.0); Hemoglobin 7.8 GM/DL (12.0-16.0); Immature Granulocytes % 1.5 %; Immature Granulocytes Absolute 0.21 #; Lymphocytes # 1.9 10*3/uL (1.4-4.0); Lymphocytes % 13.7 % (21.3-54.2); Mean Corpuscular Volume 96.9 FL (87-102); Mean Platelet Volume 8.7 FL (9.6-12.0); Monocytes % 3.7 % (1.7-12.7); Platelet Count 729 T/CUMM (130-400); Red Cell Distribution Width 13.8 % (9.3-17.3); White Blood Count 13.6 T/CUMM (4-12)
[2019-08-01] MEDS: BUTALBITAL/ACETAMIN/CAFFEINE 50-325-40 MG TABLET PO PRN ×2 (16:05→23:16)
[2019-08-01] MEDS: LEVOFLOXACIN INJ 750 MG in PREMIX 1 EACH IV SCH (17:24)
[2019-08-02] MEDS: ceFAZolin 2,000 MG in PREMIX 1 EACH IV SCH ×3 (00:23→17:54)
[2019-08-02] MEDS: BUTALBITAL/ACETAMIN/CAFFEINE 50-325-40 MG TABLET PO PRN ×2 (05:17→17:42)
[2019-08-02] MEDS: LEVOTHYROXINE 112 MCG TABLET PO SCH (06:17)
[2019-08-02 06:40] LABS: Basophils # 0.1 10*3/uL (0.0-0.2); Basophils % 0.7 % (0.0-0.8); Eosinophils # 0.2 10*3/uL (0.0-0.87); Eosinophils % 1.6 % (0.00-10.9); Hematocrit 29.1 VOL% (35.7-47.0); Hemoglobin 9.1 GM/DL (12.0-16.0); Immature Granulocytes % 1.9 %; Immature Granulocytes Absolute 0.24 #; Lymphocytes # 1.7 10*3/uL (1.4-4.0); Mean Corpuscular HGB Conc 31.3 GM/DL (32-36); Mean Corpuscular Volume 95.7 FL (87-102); Mean Platelet Volume 8.9 FL (9.6-12.0); Monocytes % 6.5 % (1.7-12.7); Neutrophils % 76.3 % (38.7-73.9); Platelet Count 748 T/CUMM (130-400); Red Blood Count 3.04 MC/CUMM (3.8-5.5); Red Cell Distribution Width 13.7 % (9.3-17.3); White Blood Count 12.8 T/CUMM (4-12)
[2019-08-02 06:59] LABS: Calcium 8.9 MG/DL (8.5-10.1); Osmolality,Calculated 269.1 MOS/KG (273-304)
[2019-08-02] MEDS: ACETAMINOPHEN 325 MG TABLET PO PRN ×2 (07:14→20:57)
[2019-08-02] MEDS: INSULIN LISPRO 100 UNIT/ML SUBCUT SCH ×3 (08:34→17:40)
[2019-08-02] MEDS: PANTOPRAZOLE 40 MG TABLET PO SCH (09:58)
[2019-08-02] MEDS: METOPROLOL TARTRATE 25 MG TABLET PO SCH ×2 (09:58→20:57)
[2019-08-02] MEDS: ASPIRIN EC 81 MG TABLET PO SCH (09:58)
[2019-08-02] MEDS: ASPIRIN EC 325 MG TABLET PO SCH (16:27)
[2019-08-02] MEDS ORDERED: ENOXAPARIN 40 MG/0.4 ML SYRINGE SUBCUT SCH (17:00)
[2019-08-02] MEDS: DESITIN 4OZ/NYSTATIN 15 GRAM MIXTURE PASTE TOP SCH ×2 (17:41→21:00)
[2019-08-02] MEDS: LEVOFLOXACIN INJ 750 MG in PREMIX 1 EACH IV SCH (20:54)
[2019-08-02] MEDS: PENTOXIFYLLINE 400 MG TABLET PO SCH (20:58)
[2019-08-03] MEDS: BUTALBITAL/ACETAMIN/CAFFEINE 50-325-40 MG TABLET PO PRN ×4 (00:20→21:41)
[2019-08-03] MEDS: ceFAZolin 2,000 MG in PREMIX 1 EACH IV SCH ×3 (00:20→17:52)
[2019-08-03 06:25] LABS: Basophils # 0.1 10*3/uL (0.0-0.2); Basophils % 0.8 % (0.0-0.8); Eosinophils # 0.2 10*3/uL (0.0-0.87); Eosinophils % 1.9 % (0.00-10.9); Hematocrit 27.5 VOL% (35.7-47.0); Hemoglobin 8.6 GM/DL (12.0-16.0); Immature Granulocytes % 2.6 %; Immature Granulocytes Absolute 0.31 #; Lymphocytes # 1.7 10*3/uL (1.4-4.0); Lymphocytes % 14.3 % (21.3-54.2); Mean Corpuscular HGB Conc 31.3 GM/DL (32-36); Mean Corpuscular Volume 95.2 FL (87-102); Mean Platelet Volume 8.9 FL (9.6-12.0); Monocytes % 6.6 % (1.7-12.7); Neutrophils % 73.8 % (38.7-73.9); Platelet Count 701 T/CUMM (130-400); Red Blood Count 2.89 MC/CUMM (3.8-5.5); Red Cell Distribution Width 13.7 % (9.3-17.3); White Blood Count 12.1 T/CUMM (4-12)
[2019-08-03] MEDS: LEVOTHYROXINE 112 MCG TABLET PO SCH (06:25)
[2019-08-03] MEDS: ASPIRIN EC 325 MG TABLET PO SCH (09:11)
[2019-08-03] MEDS: PANTOPRAZOLE 40 MG TABLET PO SCH (09:12)
[2019-08-03] MEDS: METOPROLOL TARTRATE 25 MG TABLET PO SCH ×2 (09:12→21:22)
[2019-08-03] MEDS: PENTOXIFYLLINE 400 MG TABLET PO SCH ×2 (09:12→21:22)
[2019-08-03] MEDS: DESITIN 4OZ/NYSTATIN 15 GRAM MIXTURE PASTE TOP SCH ×2 (09:12→21:22)
[2019-08-03] MEDS: ACETAMINOPHEN 325 MG TABLET PO PRN (17:52)
[2019-08-03] MEDS: LEVOFLOXACIN INJ 750 MG in PREMIX 1 EACH IV SCH (18:34)
[2019-08-04] MEDS: ceFAZolin 2,000 MG in PREMIX 1 EACH IV SCH ×3 (00:18→16:29)
[2019-08-04] MEDS: BUTALBITAL/ACETAMIN/CAFFEINE 50-325-40 MG TABLET PO PRN ×2 (04:58→11:25)
[2019-08-04] MEDS: LEVOTHYROXINE 112 MCG TABLET PO SCH (05:31)
[2019-08-04 06:55] LABS: Basophils # 0.1 10*3/uL (0.0-0.2); Basophils % 0.8 % (0.0-0.8); Eosinophils # 0.2 10*3/uL (0.0-0.87); Eosinophils % 1.8 % (0.00-10.9); Hematocrit 26.3 VOL% (35.7-47.0); Hemoglobin 8.1 GM/DL (12.0-16.0); Immature Granulocytes % 2.8 %; Immature Granulocytes Absolute 0.37 #; Mean Corpuscular HGB Conc 30.8 GM/DL (32-36); Mean Corpuscular Volume 95.3 FL (87-102); Mean Platelet Volume 8.7 FL (9.6-12.0); Monocytes % 7.5 % (1.7-12.7); Neutrophils % 72.1 % (38.7-73.9); Platelet Count 615 T/CUMM (130-400); Red Blood Count 2.76 MC/CUMM (3.8-5.5); Red Cell Distribution Width 13.9 % (9.3-17.3)
[2019-08-04 07:24] LABS: Calcium 9.3 MG/DL (8.5-10.1)
[2019-08-04] MEDS: PANTOPRAZOLE 40 MG TABLET PO SCH (09:19)
[2019-08-04] MEDS: ASPIRIN EC 325 MG TABLET PO SCH (09:19)
[2019-08-04] MEDS: PENTOXIFYLLINE 400 MG TABLET PO SCH ×2 (09:19→21:08)
[2019-08-04] MEDS: METOPROLOL TARTRATE 25 MG TABLET PO SCH ×2 (09:19→21:07)
[2019-08-04] MEDS: DESITIN 4OZ/NYSTATIN 15 GRAM MIXTURE PASTE TOP SCH ×2 (10:30→21:05)
[2019-08-04] MEDS: ACETAMINOPHEN 325 MG TABLET PO PRN (17:48)
[2019-08-04] MEDS ORDERED: IBUPROFEN 800 MG TABLET PO ONE (19:15)
[2019-08-04] MEDS: LEVOFLOXACIN INJ 750 MG in PREMIX 1 EACH IV SCH (20:07)
[2019-08-05] MEDS: BUTALBITAL/ACETAMIN/CAFFEINE 50-325-40 MG TABLET PO PRN ×4 (00:43→19:19)
[2019-08-05] MEDS: ceFAZolin 2,000 MG in PREMIX 1 EACH IV SCH ×3 (00:43→16:32)
[2019-08-05] MEDS: ACETAMINOPHEN 325 MG TABLET PO PRN ×2 (04:07→22:20)
[2019-08-05 05:48] LABS: Basophils # 0.1 10*3/uL (0.0-0.2); Basophils % 0.8 % (0.0-0.8); Eosinophils # 0.4 10*3/uL (0.0-0.87); Eosinophils % 2.9 % (0.00-10.9); Hematocrit 26.5 VOL% (35.7-47.0); Hemoglobin 8.2 GM/DL (12.0-16.0); Immature Granulocytes % 5.8 %; Immature Granulocytes Absolute 0.71 #; Lymphocytes # 2.1 10*3/uL (1.4-4.0); Lymphocytes % 17.1 % (21.3-54.2); Mean Corpuscular HGB Conc 30.9 GM/DL (32-36); Mean Corpuscular Volume 95.3 FL (87-102); Mean Platelet Volume 8.7 FL (9.6-12.0); Monocytes % 7.4 % (1.7-12.7); Platelet Count 598 T/CUMM (130-400); Red Blood Count 2.78 MC/CUMM (3.8-5.5); Red Cell Distribution Width 13.7 % (9.3-17.3); White Blood Count 12.2 T/CUMM (4-12)
[2019-08-05 06:19] LABS: Calcium 8.7 MG/DL (8.5-10.1)
[2019-08-05] MEDS: LEVOTHYROXINE 112 MCG TABLET PO SCH (06:40)
[2019-08-05 07:06] LABS: Band Neutrophils 2 % (0-10); Eosinophils 7 % (0-10); Hypochromasia 1+; Lymphocytes 20 % (20-55); Myelocytes 2 %; Segmented Neutrophils 61 % (50-85); Total Cells Counted 100
[2019-08-05 07:07] LABS: Macrocytosis Slight; Platelet Estimate Increased
[2019-08-05] MEDS: METOPROLOL TARTRATE 25 MG TABLET PO SCH ×2 (09:16→21:59)
[2019-08-05] MEDS: PENTOXIFYLLINE 400 MG TABLET PO SCH ×2 (09:16→22:01)
[2019-08-05] MEDS: PANTOPRAZOLE 40 MG TABLET PO SCH (09:16)
[2019-08-05] MEDS: ASPIRIN EC 325 MG TABLET PO SCH (09:16)
[2019-08-05] MEDS: DESITIN 4OZ/NYSTATIN 15 GRAM MIXTURE PASTE TOP SCH ×2 (09:17→22:00)
[2019-08-05] MEDS: LEVOFLOXACIN INJ 750 MG in PREMIX 1 EACH IV SCH (22:02)
[2019-08-05] MEDS: NITROGLYCERIN SL 0.4 MG TABLET SL PRN (23:23)
[2019-08-06] MEDS: ceFAZolin 2,000 MG in PREMIX 1 EACH IV SCH ×3 (00:20→16:03)
[2019-08-06] MEDS: BUTALBITAL/ACETAMIN/CAFFEINE 50-325-40 MG TABLET PO PRN ×2 (03:59→10:30)
[2019-08-06] MEDS: LEVOTHYROXINE 112 MCG TABLET PO SCH (06:16)
[2019-08-06] MEDS: PENTOXIFYLLINE 400 MG TABLET PO SCH ×2 (10:08→22:23)
[2019-08-06] MEDS: PANTOPRAZOLE 40 MG TABLET PO SCH (10:08)
[2019-08-06] MEDS: ASPIRIN EC 325 MG TABLET PO SCH (10:09)
[2019-08-06] MEDS: METOPROLOL TARTRATE 25 MG TABLET PO SCH ×2 (10:09→22:23)
[2019-08-06] MEDS: DESITIN 4OZ/NYSTATIN 15 GRAM MIXTURE PASTE TOP SCH ×2 (10:09→22:23)
[2019-08-06] MEDS: ACETAMINOPHEN 325 MG TABLET PO PRN (18:10)
[2019-08-06] MEDS: LEVOFLOXACIN INJ 750 MG in PREMIX 1 EACH IV SCH (22:28)
[2019-08-07] MEDS: ceFAZolin 2,000 MG in PREMIX 1 EACH IV SCH ×4 (00:45→23:40)
[2019-08-07] MEDS: BUTALBITAL/ACETAMIN/CAFFEINE 50-325-40 MG TABLET PO PRN ×3 (04:01→20:42)
[2019-08-07] MEDS: LEVOTHYROXINE 112 MCG TABLET PO SCH (06:17)
[2019-08-07 06:57] LABS: Basophils # 0.1 10*3/uL (0.0-0.2); Basophils % 0.6 % (0.0-0.8); Eosinophils # 0.3 10*3/uL (0.0-0.87); Eosinophils % 2.3 % (0.00-10.9); Hematocrit 27.5 VOL% (35.7-47.0); Hemoglobin 8.6 GM/DL (12.0-16.0); Immature Granulocytes % 3.1 %; Lymphocytes # 1.8 10*3/uL (1.4-4.0); Lymphocytes % 14.2 % (21.3-54.2); Mean Corpuscular HGB Conc 31.3 GM/DL (32-36); Mean Corpuscular Volume 94.8 FL (87-102); Mean Platelet Volume 8.8 FL (9.6-12.0); Monocytes % 6.1 % (1.7-12.7); Neutrophils % 73.7 % (38.7-73.9); Platelet Count 526 T/CUMM (130-400); Red Cell Distribution Width 13.9 % (9.3-17.3); White Blood Count 12.9 T/CUMM (4-12)
[2019-08-07 07:26] LABS: Osmolality,Calculated 267.2 MOS/KG (273-304)
[2019-08-07] MEDS: METOPROLOL TARTRATE 25 MG TABLET PO SCH ×2 (10:11→20:42)
[2019-08-07] MEDS: PENTOXIFYLLINE 400 MG TABLET PO SCH ×2 (10:12→20:42)
[2019-08-07] MEDS: DESITIN 4OZ/NYSTATIN 15 GRAM MIXTURE PASTE TOP SCH ×2 (10:12→20:46)
[2019-08-07] MEDS: PANTOPRAZOLE 40 MG TABLET PO SCH (10:12)
[2019-08-07] MEDS: ASPIRIN EC 325 MG TABLET PO SCH (10:12)
[2019-08-07] MEDS: LEVOFLOXACIN 750 MG TABLET PO SCH (20:42)
[2019-08-07] MEDS: ENOXAPARIN 40 MG/0.4 ML SYRINGE SUBCUT SCH (20:46)
[2019-08-08] MEDS: BUTALBITAL/ACETAMIN/CAFFEINE 50-325-40 MG TABLET PO PRN ×2 (03:19→11:06)
[2019-08-08] MEDS: LEVOTHYROXINE 112 MCG TABLET PO SCH (06:04)
[2019-08-08] MEDS: ceFAZolin 2,000 MG in PREMIX 1 EACH IV SCH ×2 (11:06→15:30)
[2019-08-08] MEDS: ASPIRIN EC 325 MG TABLET PO SCH (11:07)
[2019-08-08] MEDS: METOPROLOL TARTRATE 25 MG TABLET PO SCH ×2 (11:07→22:48)
[2019-08-08] MEDS: PENTOXIFYLLINE 400 MG TABLET PO SCH ×2 (11:07→22:49)
[2019-08-08] MEDS: DESITIN 4OZ/NYSTATIN 15 GRAM MIXTURE PASTE TOP SCH ×2 (11:07→22:49)
[2019-08-08] MEDS: PANTOPRAZOLE 40 MG TABLET PO SCH (11:07)
[2019-08-08] MEDS: ACETAMINOPHEN 325 MG TABLET PO PRN (15:30)
[2019-08-08] MEDS: ENOXAPARIN 40 MG/0.4 ML SYRINGE SUBCUT SCH (22:48)
[2019-08-08] MEDS: LEVOFLOXACIN 750 MG TABLET PO SCH (22:48)
[2019-08-09] MEDS: ACETAMINOPHEN 325 MG TABLET PO PRN ×4 (00:58→22:20)
[2019-08-09] MEDS: LEVOTHYROXINE 112 MCG TABLET PO SCH (05:58)
[2019-08-09 06:52] LABS: Basophils # 0.1 10*3/uL (0.0-0.2); Basophils % 0.7 % (0.0-0.8); Eosinophils # 0.4 10*3/uL (0.0-0.87); Eosinophils % 2.5 % (0.00-10.9); Hematocrit 28.4 VOL% (35.7-47.0); Hemoglobin 8.8 GM/DL (12.0-16.0); Immature Granulocytes % 4.4 %; Immature Granulocytes Absolute 0.65 #; Lymphocytes # 2.1 10*3/uL (1.4-4.0); Lymphocytes % 14.4 % (21.3-54.2); Mean Corpuscular Volume 94.4 FL (87-102); Mean Platelet Volume 8.8 FL (9.6-12.0); Monocytes % 5.3 % (1.7-12.7); Neutrophils % 72.7 % (38.7-73.9); Platelet Count 536 T/CUMM (130-400); Red Blood Count 3.01 MC/CUMM (3.8-5.5); Red Cell Distribution Width 13.7 % (9.3-17.3); White Blood Count 14.7 T/CUMM (4-12)
[2019-08-09 07:13] LABS: Band Neutrophils 4 % (0-10); Eosinophils 3 % (0-10); Lymphocytes 12 % (20-55); Segmented Neutrophils 77 % (50-85); Total Cells Counted 100
[2019-08-09 07:14] LABS: Hypochromasia 1+
[2019-08-09 07:15] LABS: Platelet Estimate Increased
[2019-08-09 07:22] LABS: Osmolality,Calculated 270.1 MOS/KG (273-304)
[2019-08-09] MEDS: ASPIRIN EC 325 MG TABLET PO SCH (09:14)
[2019-08-09] MEDS: FLUCONAZOLE 200 MG TABLET PO SCH (09:14)
[2019-08-09] MEDS: PANTOPRAZOLE 40 MG TABLET PO SCH (09:14)
[2019-08-09] MEDS: PENTOXIFYLLINE 400 MG TABLET PO SCH ×2 (09:14→20:27)
[2019-08-09] MEDS: METOPROLOL TARTRATE 25 MG TABLET PO SCH ×2 (09:14→20:28)
[2019-08-09] MEDS: DESITIN 4OZ/NYSTATIN 15 GRAM MIXTURE PASTE TOP SCH ×2 (09:15→20:30)
[2019-08-09] MEDS: BUTALBITAL/ACETAMIN/CAFFEINE 50-325-40 MG TABLET PO PRN ×2 (12:12→19:37)
[2019-08-09] MEDS: ceFAZolin 2,000 MG in PREMIX 1 EACH IV SCH ×3 (13:46→22:15)
[2019-08-09] MEDS: ENOXAPARIN 40 MG/0.4 ML SYRINGE SUBCUT SCH (20:27)
[2019-08-09] MEDS: LEVOFLOXACIN 750 MG TABLET PO SCH (20:28)
[2019-08-10] MEDS: ceFAZolin 2,000 MG in PREMIX 1 EACH IV SCH ×2 (05:54→13:17)
[2019-08-10] MEDS: LEVOTHYROXINE 112 MCG TABLET PO SCH (05:54)
[2019-08-10] MEDS: BUTALBITAL/ACETAMIN/CAFFEINE 50-325-40 MG TABLET PO PRN (05:55)
[2019-08-10] MEDS: PENTOXIFYLLINE 400 MG TABLET PO SCH (08:47)
[2019-08-10] MEDS: FLUCONAZOLE 200 MG TABLET PO SCH (08:47)
[2019-08-10] MEDS: DESITIN 4OZ/NYSTATIN 15 GRAM MIXTURE PASTE TOP SCH ×2 (08:47→20:24)
[2019-08-10] MEDS: METOPROLOL TARTRATE 25 MG TABLET PO SCH ×2 (08:47→20:12)
[2019-08-10] MEDS: PANTOPRAZOLE 40 MG TABLET PO SCH (08:47)
[2019-08-10] MEDS: ASPIRIN EC 325 MG TABLET PO SCH (08:47)
[2019-08-10] MEDS: traMADol 50 MG TABLET PO PRN ×2 (13:16→20:12)
[2019-08-10] MEDS: OXACILLIN 2,000 MG in SODIUM CHLORIDE 0.9% 100 ML IV SCH ×2 (16:51→20:16)
[2019-08-11] MEDS: OXACILLIN 2,000 MG in SODIUM CHLORIDE 0.9% 100 ML IV SCH ×6 (01:42→20:43)
[2019-08-11] MEDS: traMADol 50 MG TABLET PO PRN ×2 (01:43→07:52)
[2019-08-11 05:33] LABS: Basophils # 0.1 10*3/uL (0.0-0.2); Basophils % 0.8 % (0.0-0.8); Eosinophils # 0.4 10*3/uL (0.0-0.87); Eosinophils % 2.8 % (0.00-10.9); Hematocrit 30.7 VOL% (35.7-47.0); Hemoglobin 9.5 GM/DL (12.0-16.0); Immature Granulocytes Absolute 0.56 #; Lymphocytes # 2.4 10*3/uL (1.4-4.0); Mean Corpuscular HGB Conc 30.9 GM/DL (32-36); Mean Corpuscular Volume 95.9 FL (87-102); Mean Platelet Volume 8.6 FL (9.6-12.0); Monocytes % 5.7 % (1.7-12.7); Neutrophils % 69.7 % (38.7-73.9); Platelet Count 598 T/CUMM (130-400); Red Cell Distribution Width 13.8 % (9.3-17.3); White Blood Count 13.9 T/CUMM (4-12)
[2019-08-11] MEDS: LEVOTHYROXINE 112 MCG TABLET PO SCH (05:42)
[2019-08-11 05:43] LABS: Calcium 9.2 MG/DL (8.5-10.1); Osmolality,Calculated 271.1 MOS/KG (273-304)
[2019-08-11 06:13] LABS: Eosinophils 2 % (0-10); Hypochromasia 2+; Lymphocytes 15 % (20-55); Microcytosis 1+; Platelet Estimate Adequate; Segmented Neutrophils 80 % (50-85); Total Cells Counted 100
[2019-08-11] MEDS: METOPROLOL TARTRATE 25 MG TABLET PO SCH ×2 (08:02→20:44)
[2019-08-11] MEDS: FLUCONAZOLE 200 MG TABLET PO SCH (08:03)
[2019-08-11] MEDS: PANTOPRAZOLE 40 MG TABLET PO SCH (08:03)
[2019-08-11] MEDS: ASPIRIN EC 325 MG TABLET PO SCH (08:06)
[2019-08-11] MEDS: DESITIN 4OZ/NYSTATIN 15 GRAM MIXTURE PASTE TOP SCH ×2 (08:11→20:45)
[2019-08-11] MEDS: BUTALBITAL/ACETAMIN/CAFFEINE 50-325-40 MG TABLET PO PRN (13:08)
[2019-08-11] MEDS: CYCLOBENZAPRINE 10 MG TABLET PO PRN ×2 (15:24→20:51)
[2019-08-11] MEDS: IBUPROFEN 600 MG TABLET PO PRN (15:25)
[2019-08-12] MEDS: OXACILLIN 2,000 MG in SODIUM CHLORIDE 0.9% 100 ML IV SCH ×6 (02:22→21:47)
[2019-08-12] MEDS: IBUPROFEN 600 MG TABLET PO PRN ×3 (04:21→21:47)
[2019-08-12] MEDS: CYCLOBENZAPRINE 10 MG TABLET PO PRN ×3 (04:21→21:48)
[2019-08-12] MEDS: LEVOTHYROXINE 112 MCG TABLET PO SCH (05:33)
[2019-08-12] MEDS: FLUCONAZOLE 200 MG TABLET PO SCH (09:09)
[2019-08-12] MEDS: METOPROLOL TARTRATE 25 MG TABLET PO SCH ×2 (09:09→23:24)
[2019-08-12] MEDS: PANTOPRAZOLE 40 MG TABLET PO SCH (09:10)
[2019-08-12] MEDS: ASPIRIN EC 325 MG TABLET PO SCH (09:10)
[2019-08-12] MEDS: DESITIN 4OZ/NYSTATIN 15 GRAM MIXTURE PASTE TOP SCH ×2 (09:26→21:45)
[2019-08-13] MEDS: OXACILLIN 2,000 MG in SODIUM CHLORIDE 0.9% 100 ML IV SCH ×6 (02:11→22:00)
[2019-08-13] MEDS: LEVOTHYROXINE 112 MCG TABLET PO SCH (06:05)
[2019-08-13] MEDS: CYCLOBENZAPRINE 10 MG TABLET PO PRN ×3 (06:05→22:00)
[2019-08-13] MEDS: IBUPROFEN 600 MG TABLET PO PRN ×2 (06:05→16:10)
[2019-08-13] MEDS: METOPROLOL TARTRATE 25 MG TABLET PO SCH ×2 (08:54→21:58)
[2019-08-13] MEDS: FLUCONAZOLE 200 MG TABLET PO SCH (08:55)
[2019-08-13] MEDS: ASPIRIN EC 325 MG TABLET PO SCH (08:55)
[2019-08-13] MEDS: PANTOPRAZOLE 40 MG TABLET PO SCH (08:55)
[2019-08-13] MEDS: DESITIN 4OZ/NYSTATIN 15 GRAM MIXTURE PASTE TOP SCH ×2 (08:59→22:00)
[2019-08-14] MEDS: OXACILLIN 2,000 MG in SODIUM CHLORIDE 0.9% 100 ML IV SCH ×6 (00:30→21:43)
[2019-08-14] MEDS: IBUPROFEN 600 MG TABLET PO PRN (02:20)
[2019-08-14] MEDS: CYCLOBENZAPRINE 10 MG TABLET PO PRN ×2 (05:56→14:37)
[2019-08-14] MEDS: LEVOTHYROXINE 112 MCG TABLET PO SCH (05:56)
[2019-08-14 07:05] LABS: Basophils # 0.1 10*3/uL (0.0-0.2); Basophils % 0.8 % (0.0-0.8); Eosinophils # 0.4 10*3/uL (0.0-0.87); Eosinophils % 3.2 % (0.00-10.9); Hemoglobin 8.2 GM/DL (12.0-16.0); Immature Granulocytes % 1.7 %; Immature Granulocytes Absolute 0.19 #; Lymphocytes # 2.3 10*3/uL (1.4-4.0); Lymphocytes % 20.4 % (21.3-54.2); Mean Corpuscular HGB Conc 30.4 GM/DL (32-36); Mean Corpuscular Volume 96.1 FL (87-102); Mean Platelet Volume 8.2 FL (9.6-12.0); Monocytes % 5.2 % (1.7-12.7); Neutrophils % 68.7 % (38.7-73.9); Platelet Count 540 T/CUMM (130-400); Red Blood Count 2.81 MC/CUMM (3.8-5.5); Red Cell Distribution Width 13.6 % (9.3-17.3); White Blood Count 11.4 T/CUMM (4-12)
[2019-08-14 07:23] LABS: Calcium 8.9 MG/DL (8.5-10.1); Osmolality,Calculated 269.1 MOS/KG (273-304)
[2019-08-14] MEDS: FLUCONAZOLE 200 MG TABLET PO SCH (08:25)
[2019-08-14] MEDS: METOPROLOL TARTRATE 25 MG TABLET PO SCH ×2 (08:25→21:44)
[2019-08-14] MEDS: ASPIRIN EC 325 MG TABLET PO SCH (08:25)
[2019-08-14] MEDS: PANTOPRAZOLE 40 MG TABLET PO SCH (08:26)
[2019-08-14] MEDS: DESITIN 4OZ/NYSTATIN 15 GRAM MIXTURE PASTE TOP SCH ×2 (10:00→21:44)
[2019-08-15] MEDS: IBUPROFEN 600 MG TABLET PO PRN (00:08)
[2019-08-15] MEDS: OXACILLIN 2,000 MG in SODIUM CHLORIDE 0.9% 100 ML IV SCH ×6 (01:06→20:40)
[2019-08-15] MEDS: LEVOTHYROXINE 112 MCG TABLET PO SCH (06:12)
[2019-08-15] MEDS: CYCLOBENZAPRINE 10 MG TABLET PO PRN ×2 (06:23→14:49)
[2019-08-15] MEDS: METOPROLOL TARTRATE 25 MG TABLET PO SCH ×2 (08:28→20:41)
[2019-08-15] MEDS: FLUCONAZOLE 200 MG TABLET PO SCH (08:29)
[2019-08-15] MEDS: ASPIRIN EC 325 MG TABLET PO SCH (08:29)
[2019-08-15] MEDS: PANTOPRAZOLE 40 MG TABLET PO SCH (08:29)
[2019-08-15] MEDS: DESITIN 4OZ/NYSTATIN 15 GRAM MIXTURE PASTE TOP SCH ×2 (09:15→20:40)
[2019-08-15] MEDS: BUTALBITAL/ACETAMIN/CAFFEINE 50-325-40 MG TABLET PO PRN (17:32)
[2019-08-16] MEDS: OXACILLIN 2,000 MG in SODIUM CHLORIDE 0.9% 100 ML IV SCH ×6 (00:42→21:51)
[2019-08-16] MEDS: LEVOTHYROXINE 112 MCG TABLET PO SCH (06:15)
[2019-08-16 08:49] LABS: Basophils # 0.1 10*3/uL (0.0-0.2); Basophils % 0.7 % (0.0-0.8); Eosinophils # 0.3 10*3/uL (0.0-0.87); Eosinophils % 2.5 % (0.00-10.9); Hemoglobin 8.6 GM/DL (12.0-16.0); Immature Granulocytes % 1.3 %; Immature Granulocytes Absolute 0.15 #; Lymphocytes # 2.5 10*3/uL (1.4-4.0); Lymphocytes % 20.9 % (21.3-54.2); Mean Corpuscular HGB Conc 30.7 GM/DL (32-36); Mean Corpuscular Volume 95.9 FL (87-102); Mean Platelet Volume 8.5 FL (9.6-12.0); Monocytes % 3.2 % (1.7-12.7); Neutrophils % 71.4 % (38.7-73.9); Platelet Count 535 T/CUMM (130-400); Red Blood Count 2.92 MC/CUMM (3.8-5.5); Red Cell Distribution Width 13.7 % (9.3-17.3); White Blood Count 11.8 T/CUMM (4-12)
[2019-08-16 09:15] LABS: Alanine Aminotransferase 13 U/L (13-56); Albumin 2.1 G/DL (3.4-5.0); Alkaline Phosphatase 95 U/L (45-117); Aspartate Amino Transferase 23 U/L (0-37); Bilirubin,Total < 0.39 MG/DL (0.2-1.0); Blood Urea Nitrogen 13 MG/DL (7-18); Estimated Glom Filtration Rate 85 ML/MIN; Glucose 141 MG/DL (74-106)
[2019-08-16] MEDS: CYCLOBENZAPRINE 10 MG TABLET PO PRN ×2 (09:20→18:56)
[2019-08-16] MEDS: METOPROLOL TARTRATE 25 MG TABLET PO SCH ×2 (09:20→21:50)
[2019-08-16] MEDS: ASPIRIN EC 325 MG TABLET PO SCH (09:21)
[2019-08-16] MEDS: PANTOPRAZOLE 40 MG TABLET PO SCH (09:21)
[2019-08-16] MEDS: DESITIN 4OZ/NYSTATIN 15 GRAM MIXTURE PASTE TOP SCH ×2 (09:21→21:56)
[2019-08-17] MEDS: OXACILLIN 2,000 MG in SODIUM CHLORIDE 0.9% 100 ML IV SCH ×6 (01:30→21:18)
[2019-08-17] MEDS: LEVOTHYROXINE 112 MCG TABLET PO SCH (06:07)
[2019-08-17] MEDS: PANTOPRAZOLE 40 MG TABLET PO SCH (08:54)
[2019-08-17] MEDS: ASPIRIN EC 325 MG TABLET PO SCH (08:55)
[2019-08-17] MEDS: METOPROLOL TARTRATE 25 MG TABLET PO SCH ×2 (08:55→21:18)
[2019-08-17] MEDS: DESITIN 4OZ/NYSTATIN 15 GRAM MIXTURE PASTE TOP SCH ×2 (09:19→21:19)
[2019-08-17] MEDS: CYCLOBENZAPRINE 10 MG TABLET PO PRN ×2 (14:18→21:19)
[2019-08-18] MEDS: OXACILLIN 2,000 MG in SODIUM CHLORIDE 0.9% 100 ML IV SCH ×6 (01:35→20:48)
[2019-08-18] MEDS: CYCLOBENZAPRINE 10 MG TABLET PO PRN ×2 (03:40→16:32)
[2019-08-18] MEDS: IBUPROFEN 600 MG TABLET PO PRN (03:42)
[2019-08-18] MEDS: LEVOTHYROXINE 112 MCG TABLET PO SCH (05:54)
[2019-08-18] MEDS: PANTOPRAZOLE 40 MG TABLET PO SCH (10:16)
[2019-08-18] MEDS: ASPIRIN EC 325 MG TABLET PO SCH (10:16)
[2019-08-18] MEDS: DESITIN 4OZ/NYSTATIN 15 GRAM MIXTURE PASTE TOP SCH ×2 (10:16→20:52)
[2019-08-18] MEDS: METOPROLOL TARTRATE 25 MG TABLET PO SCH (10:36)
[2019-08-18] MEDS: ACETAMINOPHEN 325 MG TABLET PO PRN (20:49)
[2019-08-19] MEDS: OXACILLIN 2,000 MG in SODIUM CHLORIDE 0.9% 100 ML IV SCH ×6 (01:33→22:12)
[2019-08-19] MEDS: LEVOTHYROXINE 112 MCG TABLET PO SCH (05:38)
[2019-08-19] MEDS: ASPIRIN EC 325 MG TABLET PO SCH (08:42)
[2019-08-19] MEDS: PANTOPRAZOLE 40 MG TABLET PO SCH (08:42)
[2019-08-19] MEDS: IBUPROFEN 600 MG TABLET PO PRN ×2 (08:42→18:00)
[2019-08-19] MEDS: DESITIN 4OZ/NYSTATIN 15 GRAM MIXTURE PASTE TOP SCH ×2 (08:43→22:12)
[2019-08-19] MEDS ORDERED: KETOROLAC 15 MG/1 ML VIAL IV ONE (09:36)
[2019-08-20] MEDS: OXACILLIN 2,000 MG in SODIUM CHLORIDE 0.9% 100 ML IV SCH ×6 (01:55→21:36)
[2019-08-20] MEDS: LEVOTHYROXINE 112 MCG TABLET PO SCH (05:40)
[2019-08-20 08:44] LABS: Osmolality,Calculated 274.7 MOS/KG (273-304)
[2019-08-20 08:45] LABS: Basophils # 0.1 10*3/uL (0.0-0.2); Basophils % 0.8 % (0.0-0.8); Eosinophils # 0.4 10*3/uL (0.0-0.87); Hematocrit 27.9 VOL% (35.7-47.0); Hemoglobin 8.5 GM/DL (12.0-16.0); Immature Granulocytes % 1.2 %; Immature Granulocytes Absolute 0.12 #; Lymphocytes # 2.3 10*3/uL (1.4-4.0); Lymphocytes % 22.4 % (21.3-54.2); Mean Corpuscular HGB Conc 30.5 GM/DL (32-36); Mean Corpuscular Volume 96.2 FL (87-102); Mean Platelet Volume 8.7 FL (9.6-12.0); Monocytes % 7.1 % (1.7-12.7); Neutrophils % 64.5 % (38.7-73.9); Platelet Count 511 T/CUMM (130-400); White Blood Count 10.2 T/CUMM (4-12)
[2019-08-20] MEDS: DESITIN 4OZ/NYSTATIN 15 GRAM MIXTURE PASTE TOP SCH ×2 (09:00→21:32)
[2019-08-20] MEDS: PANTOPRAZOLE 40 MG TABLET PO SCH (09:00)
[2019-08-20] MEDS: ASPIRIN EC 325 MG TABLET PO SCH (09:00)
[2019-08-21] MEDS: OXACILLIN 2,000 MG in SODIUM CHLORIDE 0.9% 100 ML IV SCH ×6 (01:58→21:17)
[2019-08-21] MEDS: LEVOTHYROXINE 112 MCG TABLET PO SCH (05:38)
[2019-08-21] MEDS ORDERED: KETOROLAC 15 MG/1 ML VIAL IV ONE (08:28)
[2019-08-21] MEDS ORDERED: ENOXAPARIN 40 MG/0.4 ML SYRINGE SUBCUT SCH (09:00)
[2019-08-21] MEDS: ASPIRIN EC 325 MG TABLET PO SCH (09:31)
[2019-08-21] MEDS: IBUPROFEN 600 MG TABLET PO PRN ×2 (09:31→16:30)
[2019-08-21] MEDS: PANTOPRAZOLE 40 MG TABLET PO SCH (09:31)
[2019-08-21] MEDS: DESITIN 4OZ/NYSTATIN 15 GRAM MIXTURE PASTE TOP SCH ×2 (10:08→21:17)
[2019-08-22] MEDS: OXACILLIN 2,000 MG in SODIUM CHLORIDE 0.9% 100 ML IV SCH ×6 (01:32→20:48)
[2019-08-22] MEDS: LEVOTHYROXINE 112 MCG TABLET PO SCH (06:00)
[2019-08-22 06:17] LABS: Basophils # 0.1 10*3/uL (0.0-0.2); Basophils % 0.7 % (0.0-0.8); Eosinophils # 0.4 10*3/uL (0.0-0.87); Eosinophils % 4.3 % (0.00-10.9); Hematocrit 28.2 VOL% (35.7-47.0); Hemoglobin 8.7 GM/DL (12.0-16.0); Immature Granulocytes % 0.7 %; Immature Granulocytes Absolute 0.07 #; Lymphocytes # 2.7 10*3/uL (1.4-4.0); Lymphocytes % 26.8 % (21.3-54.2); Mean Corpuscular HGB Conc 30.9 GM/DL (32-36); Mean Platelet Volume 8.7 FL (9.6-12.0); Monocytes % 5.8 % (1.7-12.7); Neutrophils % 61.7 % (38.7-73.9); Platelet Count 508 T/CUMM (130-400); Red Cell Distribution Width 13.9 % (9.3-17.3)
[2019-08-22 06:42] LABS: Calcium 9.1 MG/DL (8.5-10.1); Osmolality,Calculated 272.8 MOS/KG (273-304)
[2019-08-22] MEDS: PANTOPRAZOLE 40 MG TABLET PO SCH (08:02)
[2019-08-22] MEDS: DESITIN 4OZ/NYSTATIN 15 GRAM MIXTURE PASTE TOP SCH ×2 (08:02→20:48)
[2019-08-22] MEDS: ASPIRIN EC 325 MG TABLET PO SCH (08:02)
[2019-08-22] MEDS: LIDOCAINE 5% PATCH TRANSDERM SCH (11:35)
[2019-08-23] MEDS: OXACILLIN 2,000 MG in SODIUM CHLORIDE 0.9% 100 ML IV SCH ×6 (01:52→21:40)
[2019-08-23] MEDS: LEVOTHYROXINE 112 MCG TABLET PO SCH (05:53)
[2019-08-23] MEDS: ASPIRIN EC 325 MG TABLET PO SCH (08:29)
[2019-08-23] MEDS: PANTOPRAZOLE 40 MG TABLET PO SCH (08:30)
[2019-08-23] MEDS: LIDOCAINE 5% PATCH TRANSDERM SCH (08:31)
[2019-08-23] MEDS: DESITIN 4OZ/NYSTATIN 15 GRAM MIXTURE PASTE TOP SCH ×2 (08:33→21:41)
[2019-08-23] MEDS: IBUPROFEN 600 MG TABLET PO SCH ×2 (09:43→17:48)
[2019-08-23] MEDS: SKIN HEALING OINT (AQUAPHOR) 50 GM TUBE TOP PRN (11:32)
[2019-08-23] MEDS: traZODone 50 MG TABLET PO PRN (23:22)
[2019-08-24] MEDS: OXACILLIN 2,000 MG in SODIUM CHLORIDE 0.9% 100 ML IV SCH ×6 (01:15→21:20)
[2019-08-24] MEDS: IBUPROFEN 600 MG TABLET PO SCH (01:15)
[2019-08-24] MEDS: LEVOTHYROXINE 112 MCG TABLET PO SCH (06:36)
[2019-08-24] MEDS ORDERED: KETOROLAC 30 MG/1 ML VIAL IV ONE (08:30)
[2019-08-24] MEDS: ASPIRIN EC 325 MG TABLET PO SCH (09:04)
[2019-08-24] MEDS: PANTOPRAZOLE 40 MG TABLET PO SCH (09:04)
[2019-08-24] MEDS: DESITIN 4OZ/NYSTATIN 15 GRAM MIXTURE PASTE TOP SCH ×2 (09:06→21:20)
[2019-08-24] MEDS: LIDOCAINE 5% PATCH TRANSDERM SCH (09:06)
[2019-08-24] MEDS: SKIN HEALING OINT (AQUAPHOR) 50 GM TUBE TOP PRN (09:07)
[2019-08-24] MEDS: KETOROLAC 10 MG TABLET PO PRN (16:07)
[2019-08-25] MEDS: OXACILLIN 2,000 MG in SODIUM CHLORIDE 0.9% 100 ML IV SCH ×6 (00:39→21:48)
[2019-08-25] MEDS: traZODone 50 MG TABLET PO PRN ×2 (00:40→22:00)
[2019-08-25 06:21] LABS: % Iron Saturation 17.7 % (18-50); Calcium 8.5 MG/DL (8.5-10.1); Ferritin 248.6 ng/ml (8-252); Osmolality,Calculated 270.1 MOS/KG (273-304)
[2019-08-25] MEDS: LEVOTHYROXINE 112 MCG TABLET PO SCH (06:40)
[2019-08-25 06:54] LABS: Basophils # 0.1 10*3/uL (0.0-0.2); Basophils % 0.9 % (0.0-0.8); Eosinophils # 0.4 10*3/uL (0.0-0.87); Eosinophils % 5.3 % (0.00-10.9); Hematocrit 25.7 VOL% (35.7-47.0); Hemoglobin 7.9 GM/DL (12.0-16.0); Immature Granulocytes % 0.8 %; Immature Granulocytes Absolute 0.06 #; Lymphocytes # 2.2 10*3/uL (1.4-4.0); Mean Corpuscular HGB Conc 30.7 GM/DL (32-36); Mean Corpuscular Volume 95.9 FL (87-102); Mean Platelet Volume 8.8 FL (9.6-12.0); Monocytes % 7.4 % (1.7-12.7); Neutrophils % 57.6 % (38.7-73.9); Platelet Count 392 T/CUMM (130-400); Red Blood Count 2.68 MC/CUMM (3.8-5.5); Red Cell Distribution Width 14.6 % (9.3-17.3)
[2019-08-25] MEDS: PANTOPRAZOLE 40 MG TABLET PO SCH (08:31)
[2019-08-25] MEDS: ASPIRIN EC 325 MG TABLET PO SCH (08:31)
[2019-08-25] MEDS: LIDOCAINE 5% PATCH TRANSDERM SCH (08:32)
[2019-08-25] MEDS: DESITIN 4OZ/NYSTATIN 15 GRAM MIXTURE PASTE TOP SCH ×2 (08:38→21:48)
[2019-08-25 14:48] LABS: Apearance,Urine CLOUDY (Clear); Bacteria,Urine Moderate /HPF (Few); Bilirubin,Urine Negative (Negative); Blood, Urine Moderate mg/dL (Negative); Glucose,Urine (UA) Negative (Negative); Hyaline Casts,Urine 3 /LPF (0-3); Ketones,Urine Negative (Negative); Mucus,Urine Occasional /LPF (Occasional); Nitrite,Urine Negative (Negative); Protein,Urine Negative; RBC,Urine 35 /HPF (0-4); Squamous Epithelial Cell,Urine Few /HPF (0-10); Urine Color Yellow (Yellow); Urine Specific Gravity 1.016 (1.001-1.035); Urine Urobilinogen < 2.0 EU/DL (0.2-1.0); WBC,Urine 16 /HPF (0-6)
[2019-08-25] MEDS: SKIN HEALING OINT (AQUAPHOR) 50 GM TUBE TOP PRN (21:35)
[2019-08-26] MEDS: OXACILLIN 2,000 MG in SODIUM CHLORIDE 0.9% 100 ML IV SCH ×6 (01:40→20:55)
[2019-08-26] MEDS: LEVOTHYROXINE 112 MCG TABLET PO SCH (05:55)
[2019-08-26] MEDS: LIDOCAINE 5% PATCH TRANSDERM SCH (08:10)
[2019-08-26] MEDS: ASPIRIN EC 325 MG TABLET PO SCH (08:12)
[2019-08-26] MEDS: CYCLOBENZAPRINE 10 MG TABLET PO PRN (08:12)
[2019-08-26] MEDS: PANTOPRAZOLE 40 MG TABLET PO SCH (08:12)
[2019-08-26] MEDS: DESITIN 4OZ/NYSTATIN 15 GRAM MIXTURE PASTE TOP SCH ×2 (08:17→20:55)
[2019-08-26] MEDS: KETOROLAC 10 MG TABLET PO PRN ×2 (12:05→20:56)
[2019-08-26] MEDS: SKIN HEALING OINT (AQUAPHOR) 50 GM TUBE TOP PRN (20:55)
[2019-08-26] MEDS: traZODone 50 MG TABLET PO PRN (20:56)
[2019-08-27] MEDS: OXACILLIN 2,000 MG in SODIUM CHLORIDE 0.9% 100 ML IV SCH ×6 (00:20→20:17)
[2019-08-27] MEDS: LEVOTHYROXINE 112 MCG TABLET PO SCH (05:33)
[2019-08-27 06:25] LABS: Basophils # 0.1 10*3/uL (0.0-0.2); Basophils % 0.9 % (0.0-0.8); Eosinophils # 0.4 10*3/uL (0.0-0.87); Eosinophils % 5.9 % (0.00-10.9); Hematocrit 26.9 VOL% (35.7-47.0); Hemoglobin 8.3 GM/DL (12.0-16.0); Immature Granulocytes % 0.8 %; Immature Granulocytes Absolute 0.05 #; Lymphocytes % 30.6 % (21.3-54.2); Mean Corpuscular HGB Conc 30.9 GM/DL (32-36); Mean Corpuscular Volume 95.4 FL (87-102); Mean Platelet Volume 9.1 FL (9.6-12.0); Monocytes % 8.1 % (1.7-12.7); Neutrophils % 53.7 % (38.7-73.9); Platelet Count 403 T/CUMM (130-400); Red Blood Count 2.82 MC/CUMM (3.8-5.5); Red Cell Distribution Width 14.8 % (9.3-17.3); White Blood Count 6.6 T/CUMM (4-12)
[2019-08-27 06:40] LABS: Calcium 8.7 MG/DL (8.5-10.1); Osmolality,Calculated 276.7 MOS/KG (273-304)
[2019-08-27] MEDS: CYCLOBENZAPRINE 10 MG TABLET PO PRN ×2 (09:13→16:55)
[2019-08-27] MEDS: PANTOPRAZOLE 40 MG TABLET PO SCH (09:13)
[2019-08-27] MEDS: ASPIRIN EC 325 MG TABLET PO SCH (09:13)
[2019-08-27] MEDS: KETOROLAC 10 MG TABLET PO PRN ×2 (09:13→20:16)
[2019-08-27] MEDS: LIDOCAINE 5% PATCH TRANSDERM SCH (09:14)
[2019-08-27] MEDS: DESITIN 4OZ/NYSTATIN 15 GRAM MIXTURE PASTE TOP SCH ×2 (09:14→20:17)
[2019-08-27] MEDS: traZODone 50 MG TABLET PO PRN (20:17)
[2019-08-27] MEDS: SKIN HEALING OINT (AQUAPHOR) 50 GM TUBE TOP PRN (20:17)
[2019-08-28] MEDS: OXACILLIN 2,000 MG in SODIUM CHLORIDE 0.9% 100 ML IV SCH ×6 (00:12→23:32)
[2019-08-28] MEDS: LEVOTHYROXINE 112 MCG TABLET PO SCH (05:35)
[2019-08-28 06:04] LABS: Basophils # 0.1 10*3/uL (0.0-0.2); Eosinophils # 0.4 10*3/uL (0.0-0.87); Eosinophils % 5.3 % (0.00-10.9); Hematocrit 26.6 VOL% (35.7-47.0); Hemoglobin 7.9 GM/DL (12.0-16.0); Immature Granulocytes % 0.8 %; Immature Granulocytes Absolute 0.06 #; Lymphocytes # 2.1 10*3/uL (1.4-4.0); Lymphocytes % 26.6 % (21.3-54.2); Mean Corpuscular HGB Conc 29.7 GM/DL (32-36); Mean Corpuscular Volume 98.2 FL (87-102); Mean Platelet Volume 9.3 FL (9.6-12.0); Monocytes % 7.4 % (1.7-12.7); Neutrophils % 58.9 % (38.7-73.9); Platelet Count 404 T/CUMM (130-400); Red Blood Count 2.71 MC/CUMM (3.8-5.5)
[2019-08-28] MEDS: ASPIRIN EC 325 MG TABLET PO SCH (08:40)
[2019-08-28] MEDS: PANTOPRAZOLE 40 MG TABLET PO SCH (08:40)
[2019-08-28] MEDS: DESITIN 4OZ/NYSTATIN 15 GRAM MIXTURE PASTE TOP SCH ×2 (10:15→21:04)
[2019-08-28] MEDS: LIDOCAINE 5% PATCH TRANSDERM SCH (13:35)
[2019-08-28] MEDS: KETOROLAC 10 MG TABLET PO PRN (13:38)
[2019-08-28] MEDS: traZODone 50 MG TABLET PO PRN (20:24)
[2019-08-29] MEDS: KETOROLAC 10 MG TABLET PO PRN (00:23)
[2019-08-29] MEDS: OXACILLIN 2,000 MG in SODIUM CHLORIDE 0.9% 100 ML IV SCH ×4 (04:51→16:41)
[2019-08-29] MEDS: LEVOTHYROXINE 112 MCG TABLET PO SCH (05:56)
[2019-08-29 06:33] LABS: Basophils # 0.1 10*3/uL (0.0-0.2); Basophils % 1.7 % (0.0-0.8); Eosinophils # 0.4 10*3/uL (0.0-0.87); Eosinophils % 6.3 % (0.00-10.9); Hematocrit 26.4 VOL% (35.7-47.0); Hemoglobin 7.9 GM/DL (12.0-16.0); Immature Granulocytes % 0.6 %; Immature Granulocytes Absolute 0.04 #; Lymphocytes # 2.4 10*3/uL (1.4-4.0); Lymphocytes % 35.6 % (21.3-54.2); Mean Corpuscular HGB Conc 29.9 GM/DL (32-36); Mean Corpuscular Volume 97.4 FL (87-102); Mean Platelet Volume 8.9 FL (9.6-12.0); Monocytes % 7.1 % (1.7-12.7); Neutrophils % 48.7 % (38.7-73.9); Platelet Count 372 T/CUMM (130-400); Red Blood Count 2.71 MC/CUMM (3.8-5.5); Red Cell Distribution Width 15.4 % (9.3-17.3); White Blood Count 6.6 T/CUMM (4-12)
[2019-08-29 06:59] LABS: Calcium 8.9 MG/DL (8.5-10.1); Osmolality,Calculated 277.5 MOS/KG (273-304)
[2019-08-29] MEDS: PANTOPRAZOLE 40 MG TABLET PO SCH (08:48)
[2019-08-29] MEDS: ASPIRIN EC 325 MG TABLET PO SCH (08:48)
[2019-08-29] MEDS: LIDOCAINE 5% PATCH TRANSDERM SCH (10:57)
[2019-08-29 12:07] VITALS: BP 99/57
[2019-08-29] MEDS: DESITIN 4OZ/NYSTATIN 15 GRAM MIXTURE PASTE TOP SCH (13:06)
== END 2019-08-29 17:00 | disposition left against medical advice (07) | DRG 871 ==
LOC: EDUNIT# → EDBD → N.ED 08:30 → SUATTDRO 11:26 → N.EDINP 11:26 → N.ICU 13:31 → N.3E 07-21 18:15
PROVIDERS: ADMIT Internal Medicine; ATTEND Internal Medicine